=== PATIENT | female | born 1980 | race Caucasian/White ===

== ENCOUNTER 2016-04-29 11:27 | Emergency (ER) | payer BC ==
[2016-04-29 11:50] VITALS: BP 138/61
--- NOTE | 2016-04-29 14:04 | UC ---
UC General HPI - HPI Summary HPI Summary: patient has had a tight spot in the upper right shoulder for a few days, her attempted to massage it out, now the pain extends up to her neck and down to her shoulder. She has full ROM but it is somewhat painful. - History of Current Complaint Chief Complaint: UCUpperExtremity Stated Complaint: RIGHT SHOULDER PAIN Time Seen by Provider: 04/29/16 13:44 Hx Obtained From: Patient Onset/Duration: Sudden Onset, Lasting Days Timing: Constant Onset Severity: Moderate Current Severity: Moderate Pain Intensity: 6 Pain Location at: right mid trapezius Pain Radiates to: neck and right shoulder - Allergy/Home Medications Allergies/Adverse Reactions: Allergies Allergy/AdvReac Type Severity Reaction Status Date / Time Penicillins Allergy Intermediate Rash Verified 04/29/16 11:50 Fexofenadine [From Jelly-D] AdvReac Intermediate Dizziness Verified 04/29/16 11:50 PMH/Surg Hx/FS Hx/Imm Hx Previously Healthy: Yes Respiratory History Of: Reports: Asthma - as a child - Surgical History Surgical History: Yes Surgery Procedure, Year, and Place: gallbladder, appy - Family History Known Family History: Positive: Hypertension, Diabetes - father - Social History Alcohol Use: None Substance Use Type: None Smoking Status (MU): Former Smoker Have You Smoked in the Last Year: No - Immunization History Hx Tetanus, Diphtheria Vaccination: Yes Vaccination Up to Date: Yes Review of Systems Constitutional: Negative Skin: Negative Eyes: Negative ENT: Negative Respiratory: Negative Cardiovascular: Negative Gastrointestinal: Negative Genitourinary: Negative Motor: Negative Neurovascular: Negative Musculoskeletal: Myalgia Neurological: Negative Psychological: Negative All Other Systems Reviewed And Are Negative: Yes Physical Exam Triage Information Reviewed: Yes Appearance: Well-Appearing, Well-Nourished, Pain Distress Vital Signs: Initial Vital Signs Temp 98.5 F 04/29/16 11:46 Pulse 74 04/29/16 11:46 Resp 16 04/29/16 11:46 BP 138/61 04/29/16 11:46 Pulse Ox 100 04/29/16 11:46 Eye Exam: Normal Eyes: Positive: Conjunctiva Clear ENT Exam: Normal ENT: Positive: Normal ENT inspection, Pharynx normal, TMs normal Dental Exam: Normal Neck exam: Normal Neck: Positive: Supple, Tenderness @ - along right upper trap Respiratory Exam: Normal Respiratory: Positive: Chest non-tender, Lungs clear, Normal breath sounds Cardiovascular Exam: Normal Cardiovascular: Positive: RRR, No Murmur Abdominal Exam: Normal Abdomen Description: Positive: Nontender, No Organomegaly, Soft Bowel Sounds: Positive: Present Musculoskeletal Exam: Normal Musculoskeletal: Positive: Strength Intact, ROM Intact, No Edema, Other: - palpable tenderness over the belly of the muscle, she has full ROM in passive and active. resistive ROM eliecits pain in arm extension Neurological Exam: Normal Neurological: Positive: Alert, Muscle Tone Normal Psychological Exam: Normal Skin Exam: Normal Course/Dx - Course Course Of Treatment: history obtained, exam performed, medication prescribed recommend heat, ibuprofen, massage. follow up as necessary. - Differential Dx - Multi-Symptom Provider Diagnoses: muscle strain, right trapezius Discharge - Discharge Plan Condition: Stable Disposition: HOME Prescriptions: Cyclobenzaprine TAB* [Flexeril TAB*] 10 mg PO TID PRN #15 tab PRN Reason: Spasms Patient Education Materials: Muscle Strain (ED) Additional Instructions: Use the flexeril as needed. Continue with heat and gentle stretching. massage therapy highly recommended. follow up as needed with any increase in symptoms.
== END 2016-04-29 14:12 | disposition home or self-care (01) ==
LOC: UCCORT 11:27
DX: S46.811A Strain of other muscles, fascia and tendons at shoulder and upper arm level, right arm, initial encounter (principal); X58.XXXA Exposure to other specified factors, initial encounter; Y93.9 Activity, unspecified; Y92.9 Unspecified place or not applicable; Z87.891 Personal history of nicotine dependence; Z88.8 Allergy status to other drugs, medicaments and biological substances; Z88.0 Allergy status to penicillin
CPT/HCPCS: 99212; G0463

== ENCOUNTER 2016-12-31 11:22 | Emergency (ER) | payer BC ==
[2016-12-31 11:44] VITALS: BP 119/68
--- NOTE | 2016-12-31 12:14 | UC ---
Ear Complaint HPI - HPI Summary HPI Summary: R ear pain starting yesterday. Pt has history of AOM when younger, no ENT surgeries. Denies recent URI sx or water exposure. No drainage from the ear or hearing changes. - History of Current Complaint Chief Complaint: UCEar Stated Complaint: RIGHT EAR PAIN Time Seen by Provider: 12/31/16 11:47 Hx Obtained From: Patient Hx Last Menstrual Period: 12/03/16 ?: No Onset/Duration: Gradual Onset, Lasting Days Severity Initially: Mild Severity Currently: Moderate Aggravating Factors: Other - chewing Associated Signs/Symptoms: Negative: Hearing Loss, Foreign Body Sensation, Trauma to Ear, URI Symptoms - Allergies/Home Medications Allergies/Adverse Reactions: Allergies Allergy/AdvReac Type Severity Reaction Status Date / Time Penicillins Allergy Intermediate Rash Verified 12/31/16 11:44 Fexofenadine [From Jelly-D] AdvReac Intermediate Dizziness Verified 12/31/16 11:44 PMH/Surg Hx/FS Hx/Imm Hx Respiratory History: Asthma - Surgical History Surgical History: Yes Surgery Procedure, Year, and Place: gallbladder, appy - Family History Known Family History: Positive: Hypertension, Diabetes - father - Social History Occupation: Employed Full-time Lives: With Family Alcohol Use: Rare Substance Use Type: None Smoking Status (MU): Current Every Day Smoker Type: Cigarettes Amount Used/How Often: 6-7 CIGS PER DAY Length of Time of Smoking/Using Tobacco: 6-7 YRS Have You Smoked in the Last Year: Yes Cessation Counseling: Patient Advised to Stop - Immunization History Hx Tetanus, Diphtheria Vaccination: Yes Vaccination Up to Date: Yes Review of Systems Constitutional: Negative Skin: Negative Eyes: Negative ENT: Ear Ache Respiratory: Negative Cardiovascular: Negative Gastrointestinal: Negative Genitourinary: Negative Motor: Negative Neurovascular: Negative Musculoskeletal: Negative Neurological: Negative Psychological: Negative Is Patient Immunocompromised?: No All Other Systems Reviewed And Are Negative: Yes Physical Exam Triage Information Reviewed: Yes Appearance: Well-Appearing, Obese Vital Signs: Initial Vital Signs Temp 98.3 F 12/31/16 11:39 Pulse 85 12/31/16 11:39 Resp 16 12/31/16 11:39 BP 119/68 12/31/16 11:39 Pulse Ox 98 12/31/16 11:39 Vital Signs Reviewed: Yes Eye Exam: Normal, Other - PERRL Eyes: Positive: Conjunctiva Clear ENT: Positive: Pharynx normal, TMs normal, Other: - tenderness over R TMJ, palpable click with jaw opening. Negative: Pharyngeal erythema, Nasal congestion, Nasal drainage, Tonsillar swelling, Tonsillar exudate Dental Exam: Normal Neck exam: Normal Neck: Positive: Supple, Nontender, No Lymphadenopathy Respiratory Exam: Normal Respiratory: Positive: Chest non-tender, Lungs clear, Normal breath sounds, No respiratory distress, No accessory muscle use Cardiovascular Exam: Normal Cardiovascular: Positive: RRR, No Murmur Musculoskeletal Exam: Normal Neurological Exam: Normal Neurological: Positive: Alert Psychological Exam: Normal Skin Exam: Normal Ear Complaint Course/Dx - Differential Dx/Diagnosis Provider Diagnoses: R TMJ pain Discharge - Discharge Plan Condition: Stable Disposition: HOME Prescriptions: Cyclobenzaprine (NF) [Cyclobenzaprine 5 MG (NF)] 5 - 10 mg PO BEDTIME PRN #20 tab PRN Reason: Pain Indomethacin CAP* [Indocin CAP*] 50 mg PO TID PRN #30 cap PRN Reason: Pain Patient Education Materials: Temporomandibular Disorder (ED) Referrals: CLAUDINE Cardenas [Primary Care Provider] - Additional Instructions: Go on a low-chewing diet (try to stick with smooth things like mashed potatoes, yogurt, and soup), start the anti-inflammatory, and use the muscle relaxer at night. Once your pain is well-controlled you can try reducing your doses or stopping the medicine altogether. You should keep to the special diet for at least 3 days after your pain resolves, and increase the solid food carefully.
== END 2016-12-31 12:32 | disposition home or self-care (01) ==
LOC: UCCORT 11:22
DX: M26.621 Arthralgia of right temporomandibular joint (principal); F17.210 Nicotine dependence, cigarettes, uncomplicated; Z88.0 Allergy status to penicillin; Z88.8 Allergy status to other drugs, medicaments and biological substances; Z71.6 Tobacco abuse counseling
CPT/HCPCS: 99211; G0463